=== PATIENT | male | born 1990 | race Caucasian/White ===

== ENCOUNTER 2019-12-04 18:07 | Emergency (ER) | payer OTHER ==
[~2019-12-04] VITALS: Ht 185.4 cm; Wt 104.3 kg
[2019-12-04] MEDS ORDERED: PAXIL20 MG PO (18:25)
== END 2019-12-04 19:31 | disposition home or self-care (01) ==
LOC: ED 18:07
DX: S53.401A Unspecified sprain of right elbow, initial encounter (principal); S00.03XA Contusion of scalp, initial encounter; S60.221A Contusion of right hand, initial encounter; S00.81XA Abrasion of other part of head, initial encounter; F32.9 Major depressive disorder, single episode, unspecified; Z87.891 Personal history of nicotine dependence; W22.01XA Walked into wall, initial encounter
CPT/HCPCS: 73030; 73130; 99283-25